=== PATIENT | male | born 1945 | race Two or more races ===

== ENCOUNTER 2016-09-16 09:54 | Observation (INO) | payer MEDICARE ==
[~2016-09-16] VITALS: Ht 180.3 cm; Wt 83.0 kg
[~2016-09-16 09:54] MED LIST: ASPI325T4 PO; ATOR20TA50 PO; ISOS60TA24 PO; LISI10TA6 PO; METO25TA3 PO; METO25TA62 PO; NIFE90TA25 PO; [UNRECOGNIZED DRUG - CODE] PO
[2016-09-16 11:17] LABS: Basophils # (auto) 0 uL; Basophils % (auto) 0.3 % (0.0-2.0); CONDITION AutoValidated; Eosinophils # (auto) 0 uL; Eosinophils % (auto) 0.5 % (0.0-7.0); Hematocrit 42.9 % (41.0-53.0); Hemoglobin 14.6 g/dL (13.5-17.5); Lymphocytes # (auto) 1.5 uL; Lymphocytes % (auto) 17.7 % (10.0-50.0); Mean Corpuscular Hgb Conc. 34.2 g/dL (32.0-36.0); Mean Corpuscular Volume 90.7 fL (80.0-100.0); Mean Platelet Volume 9.1 fL (7.4-10.4); Monocytes # (auto) 0.6 uL; Monocytes % (auto) 7.3 % (0.0-12.0); Neutrophils # (auto) 6.2 uL; Neutrophils % (auto) 74.2 % (37.0-80.0); Platelet Count (auto) 201 10^3/uL (140-450); Red Cell Distribution Width 13.7 % (11.6-16.0); White Blood Cell 8.3 10^3/uL (4.4-10.8)
[2016-09-16 11:43] LABS: Albumin 3.4 g/dL (3.4-5.0); BUN/Creatinine Ratio 18.4; Bilirubin, Total 0.5 mg/dL (0.2-1.0); Calcium 8.6 mg/dL (8.5-10.1); Potassium 3.3 mmol/L (3.5-5.1); Total Protein 6.5 g/dL (6.4-8.2)
[2016-09-16 13:26] LABS: INR 1.04 (0.9-1.15); Partial Thromboplastin Time 29.5 sec (22.64-33.71); Prothrombin Time 11.3 sec (9.37-12.3)
[2016-09-16 13:36] LABS: B-Type Natriuretic Peptide 141.93 pg/mL (0-100)
[2016-09-16 13:42] LABS: Temperature: 23.3 C (20.0-25.0)
[2016-09-16] MEDS ORDERED: IOHEXOL 350 MG/ML 100ML IJ ONE (15:34)
[2016-09-16 16:13] VITALS: BP 146/86
[2016-09-16] MEDS ORDERED: POTASSIUM CHL 20 Meq TABLET PO ONE (16:45)
== END 2016-09-16 17:01 | disposition home or self-care (01) | DRG 310 ==
LOC: ER 09:57 → OVERFLOW 12:52 → ER 17:01
PROVIDERS: ADMIT Family Medicine; ATTEND Family Medicine
DX: R00.2 Palpitations (principal); E87.6 Hypokalemia; I48.0 Paroxysmal atrial fibrillation; R79.89 Other specified abnormal findings of blood chemistry; I71.2 Thoracic aortic aneurysm, without rupture; D49.7 Neoplasm of unspecified behavior of endocrine glands and other parts of nervous system; D89.9 Disorder involving the immune mechanism, unspecified; I10 Essential (primary) hypertension; K57.90 Diverticulosis of intestine, part unspecified, without perforation or abscess without bleeding; Z82.49 Family history of ischemic heart disease and other diseases of the circulatory system
CPT/HCPCS: 36415; 71020; 71260; 80053; 83735; 83880; 84443; 84484; 85025; 85379; 85610; 85730; 93005; 99285; G0378; Q9967

== ENCOUNTER 2016-12-22 07:30 | Emergency (ER) | payer MEDICARE ==
[~2016-12-22] VITALS: Ht 180.3 cm; Wt 83.0 kg
[~2016-12-22 07:30] MED LIST changes: +DIAZ5TAB3 PO; +EPLE25TA11 PO; -METO25TA62 PO; +SERT-160 PO
[2016-12-22] MEDS ORDERED: cloNIDine HCL 0.1 MG TAB PO ONE (08:15)
[2016-12-22 08:21] LABS: Basophils # (auto) 0 uL; Basophils % (auto) 0.4 % (0.0-2.0); Eosinophils # (auto) 0.1 uL; Eosinophils % (auto) 0.8 % (0.0-7.0); Hematocrit 41.6 % (41.0-53.0); Hemoglobin 14.3 g/dL (13.5-17.5); Lymphocytes # (auto) 1.1 uL; Lymphocytes % (auto) 16.7 % (10.0-50.0); Mean Corpuscular Hemoglobin 31.7 pg (28.0-32.0); Mean Corpuscular Hgb Conc. 34.4 g/dL (32.0-36.0); Mean Corpuscular Volume 92.1 fL (80.0-100.0); Mean Platelet Volume 8.9 fL (6.9-10.8); Monocytes # (auto) 0.4 uL; Monocytes % (auto) 5.5 % (0.0-12.0); Neutrophils # (auto) 4.9 uL; Neutrophils % (auto) 76.6 % (37.0-80.0); Platelet Count (auto) 159 10^3/uL (140-450); Red Cell Distribution Width 13.2 % (11.8-14.3); White Blood Cell 6.4 10^3/uL (4.4-10.8)
[2016-12-22 08:37] LABS: Albumin 3.3 g/dL (3.4-5.0); Anion Gap 7 (5-15); Aspartate Aminotransferase 11 U/L (15-37); BUN/Creatinine Ratio 19.1; Blood Urea Nitrogen 17 mg/dL (7-18); Calcium 8.6 mg/dL (8.5-10.1); Carbon Dioxide 28 mmol/L (21-32); Chloride 109 mmol/L (98-107); GFR African American 108 mL/min; GFR Non-African American 90 mL/min; Glucose 102 mg/dL (74-106); Potassium 3.7 mmol/L (3.5-5.1); Sodium 144 mmol/L (136-145)
[2016-12-22 08:44] LABS: Alkaline Phosphatase 79 U/L (45-117); Bilirubin, Total 0.5 mg/dL (0.2-1.0); Total Protein 6.4 g/dL (6.4-8.2)
[2016-12-22 09:10] VITALS: BP 139/79
== END 2016-12-22 15:50 | disposition home or self-care (01) ==
LOC: ER 07:30
DX: I11.0 Hypertensive heart disease with heart failure (principal); I50.9 Heart failure, unspecified; I48.91 Unspecified atrial fibrillation; E78.5 Hyperlipidemia, unspecified; R07.9 Chest pain, unspecified; R51 Headache; Z79.899 Other long term (current) drug therapy
CPT/HCPCS: 36415; 70450; 71020; 80053; 84484; 85025; 93005; 94761

== ENCOUNTER → 2018-03-08 | Outpatient (CLI) | payer OTHER, MEDICAID ==
[~2018-03-08] MED LIST changes: +ALBUTEROL SULF 2.5 MG/0.5ML(0.5%) NEB SOLN ONE; -METO25TA3 PO; +METO25TA4 PO
== END | disposition home or self-care (01) ==
LOC: XYW 08:16
PROVIDERS: ATTEND Internal Medicine Pulmonary Disease
DX: R06.02 Shortness of breath (principal)
CPT/HCPCS: 94060; 94727; 94729; J7611

== ENCOUNTER 2019-01-26 08:35 | Emergency (ER) | payer OTHER, MEDICAID ==
[~2019-01-26] VITALS: Ht 175.3 cm; Wt 88.5 kg
[~2019-01-26 08:35] MED LIST changes: -ALBUTEROL SULF 2.5 MG/0.5ML(0.5%) NEB SOLN ONE; -EPLE25TA11 PO; +EPLE25TA4 PO; +METO25TA36 PO; -METO25TA4 PO
[2019-01-26 08:43] VITALS: BP 143/71
[2019-01-26 08:59] LABS: Urine Bacteria NONE SEEN /hpf (None Seen); Urine Blood Negative /uL (Negative); Urine Mucus FEW (None Seen); Urine Specific Gravity 1.022 (1.001-1.035); Urine WBC 231 /hpf (0 - 3)
[2019-01-26] MEDS ORDERED: cefTRIAXone SOD 1,000 MG VL IM ONE (10:00)
[2019-01-26] MEDS ORDERED: PHENAZOPYRIDINE HCL 100 MG TAB PO ONE (10:00)
[2019-01-26] MEDS ORDERED: ACETAMINOPHEN 500 MG TAB PO ONE (10:00)
== END 2019-01-26 10:25 | disposition home or self-care (01) ==
LOC: ER 08:35
DX: N39.0 Urinary tract infection, site not specified (principal); R51 Headache; I48.91 Unspecified atrial fibrillation; I11.0 Hypertensive heart disease with heart failure; I50.9 Heart failure, unspecified; E78.5 Hyperlipidemia, unspecified; Z79.899 Other long term (current) drug therapy
CPT/HCPCS: 81001; 96372; 99283; J0696

== ENCOUNTER 2020-09-01 12:07 | Day surgery (SDC) | payer OTHER, MEDICAID ==
[2020-08-27 12:20] LABS: Basophils # (auto) 0 10 ^3/uL (0-0.2); Basophils % (auto) 0.4 % (0.0-2.0); Eosinophils # (auto) 0.3 10 ^3/uL (0-0.8); Eosinophils % (auto) 3.1 % (0.0-7.0); Hematocrit 44.4 % (41.0-53.0); Hemoglobin 15.4 g/dL (13.5-17.5); Lymphocytes % (auto) 21.3 % (10.0-50.0); Mean Corpuscular Hemoglobin 31.6 pg (28.0-32.0); Mean Corpuscular Hgb Conc. 34.5 g/dL (32.0-36.0); Mean Corpuscular Volume 91.4 fL (80.0-100.0); Monocytes # (auto) 0.9 10 ^3/uL (0-1.3); Monocytes % (auto) 9.6 % (0.0-12.0); Neutrophils # (auto) 6.2 10 ^3/uL (1.6-8.6); Neutrophils % (auto) 65.6 % (37.0-80.0); Nucleated Red Blood Cells % 0.1 %; Platelet Count (auto) 244 10^3/uL (140-450); Red Blood Cells 4.86 10^6/uL (4.5-5.90); Red Cell Distribution Width 13.4 % (11.8-14.3); White Blood Cell 9.5 10^3/uL (4.4-10.8)
[2020-08-27 12:33] LABS: INR 1.02 (0.9-1.15); Partial Thromboplastin Time 29.3 sec (23.0-31.2)
[2020-08-27 12:39] LABS: Albumin 3.3 g/dL (3.4-5.0); Calcium 8.8 mg/dL (8.5-10.1); Potassium 4.5 mmol/L (3.5-5.1)
[2020-08-27 12:42] LABS: Bilirubin, Total 0.4 mg/dL (0.2-1.0); Total Protein 6.8 g/dL (6.4-8.2)
[~2020-09-01] VITALS: Ht 175.3 cm; Wt 87.1 kg
[~2020-09-01 12:07] MED LIST changes: -ATOR20TA50 PO; -DIAZ5TAB3 PO; +DOXA4TAB5 PO; +DOXE10CA PO; -EPLE25TA4 PO; -LISI10TA6 PO; +LOSA-69 PO; -NIFE90TA25 PO; -SERT-160 PO; +VORT10TA PO; -[UNRECOGNIZED DRUG - CODE] PO
[2020-09-01] MEDS ORDERED: fentaNYL CITRATE 100 MCG/2 ML VL ONE (12:13)
[2020-09-01] MEDS: fentaNYL CITRATE 100 MCG/2 ML VL ONE ×2 (14:02→14:05)
[2020-09-01] MEDS: MIDAZOLAM HCL 5 MG/ML-1ML VIAL ONE ×3 (14:02→14:08)
[2020-09-01] MEDS: diphenhdrAMINE HCL 50 MG/1 ML VL ONE ×2 (14:02→14:05)
[2020-09-01 15:15] VITALS: BP 135/69
== END 2020-09-01 15:40 | disposition home or self-care (01) ==
LOC: GI 12:07
PROVIDERS: ATTEND Internal Medicine Gastroenterology
DX: Z12.11 Encounter for screening for malignant neoplasm of colon (principal); D12.2 Benign neoplasm of ascending colon; D12.3 Benign neoplasm of transverse colon; D12.4 Benign neoplasm of descending colon; D12.5 Benign neoplasm of sigmoid colon; K57.30 Diverticulosis of large intestine without perforation or abscess without bleeding; F99 Mental disorder, not otherwise specified; F32.9 Major depressive disorder, single episode, unspecified; F41.9 Anxiety disorder, unspecified; F17.200 Nicotine dependence, unspecified, uncomplicated; N40.0 Benign prostatic hyperplasia without lower urinary tract symptoms; I48.91 Unspecified atrial fibrillation; Z79.82 Long term (current) use of aspirin; Z79.899 Other long term (current) drug therapy; Z80.0 Family history of malignant neoplasm of digestive organs; Z20.822 Contact with and (suspected) exposure to COVID-19; Z98.890 Other specified postprocedural states; Z68.28 Body mass index [BMI] 28.0-28.9, adult; Z95.5 Presence of coronary angioplasty implant and graft; Z80.42 Family history of malignant neoplasm of prostate
CPT/HCPCS: 36415; 45385; 80053; 85025; 85610; 85730; 88305; J1200; J2250; J3010; J7030; U0003; G0500

== ENCOUNTER 2021-07-22 11:00 | Inpatient (IN) | payer OTHER, MEDICAID ==
[~2021-07-22] VITALS: Ht 175.3 cm; Wt 86.9 kg
[~2021-07-22 11:00] MED LIST changes: -DOXA4TAB5 PO; +DOXA4TAB6 PO
[2021-07-22 11:48] LABS: Basophils # (auto) 0 10 ^3/uL (0-0.2); Basophils % (auto) 0.2 % (0.0-2.0); Eosinophils # (auto) 0 10 ^3/uL (0-0.8); Hemoglobin 14.1 g/dL (13.5-17.5); Lymphocytes # (auto) 0.7 10 ^3/uL (0.4-5.4); Lymphocytes % (auto) 10.3 % (10.0-50.0); Mean Corpuscular Hemoglobin 30.6 pg (28.0-32.0); Mean Corpuscular Hgb Conc. 33.6 g/dL (32.0-36.0); Mean Corpuscular Volume 91.1 fL (80.0-100.0); Monocytes # (auto) 0.2 10 ^3/uL (0-1.3); Monocytes % (auto) 3.4 % (0.0-12.0); Neutrophils # (auto) 6.3 10 ^3/uL (1.6-8.6); Neutrophils % (auto) 86.1 % (37.0-80.0); Nucleated Red Blood Cells % 0.1 %; Red Blood Cells 4.61 10^6/uL (4.5-5.90); Red Cell Distribution Width 13.2 % (11.8-14.3); White Blood Cell 7.3 10^3/uL (4.4-10.8)
[2021-07-22 11:57] LABS: Albumin 3.3 g/dL (3.4-5.0); Calcium 8.7 mg/dL (8.5-10.1); Magnesium 2.3 mg/dL (1.6-2.6); Potassium 4.2 mmol/L (3.5-5.1)
[2021-07-22 12:05] LABS: Bilirubin, Total 0.5 mg/dL (0.2-1.0); Total Protein 6.9 g/dL (6.4-8.2)
[2021-07-22] MEDS ORDERED: IOHEXOL 350 MG/ML 100ML IJ ONE (12:11)
[2021-07-22] MEDS ORDERED: LORazepam 0.5 MG TAB PO ONE (17:30)
[2021-07-22] MEDS ORDERED: MORPHINE SULFATE INJECTION 2 MG/ML SYRG IV PRN ×2 (18:15)
[2021-07-22] MEDS ORDERED: ONDANSETRON HCL 4 MG/2 ML VIAL IV PRN (18:15)
[2021-07-22] MEDS ORDERED: SODIUM CHLORIDE 0.9% 500 ML IV ONE (18:15)
[2021-07-22] MEDS ORDERED: NITROGLYCERIN 0.4 MG SL TAB SL PRN (18:15)
[2021-07-22] MEDS ORDERED: hydrALAZINE HCL 20 MG/ML VL IV PRN (18:45)
[2021-07-22 19:11] LABS: Cholesterol 191 mg/dL (< 200)
[2021-07-22 19:14] LABS: HDL Cholesterol 41 mg/dL (40-59); LDL Cholesterol 129 mg/dL (< 100); Triglycerides 120 mg/dL (< 150)
[2021-07-22 22:00] VITALS: BP 128/71
[2021-07-22] MEDS ORDERED: CLON0.5T3 PO (22:39)
[2021-07-22] MEDS ORDERED: MONT-8 PO (22:39)
[2021-07-22] MEDS ORDERED: TEMAZEPAM 15 MG CAP PO ONE (22:45)
[2021-07-23] MEDS ORDERED: MEPO1INJ SC (03:56)
[2021-07-23 05:00] VITALS: BP 135/67
[2021-07-23 08:46] VITALS: BP 135/65
[2021-07-23] MEDS: ASPirin 81 mg TAB PO SCH (09:18)
[2021-07-23] MEDS: LOSARTAN POTASSIUM 50 MG TAB PO SCH (09:19)
[2021-07-23] MEDS: DOXAZOSIN MESYL 2 MG TAB PO SCH (09:19)
[2021-07-23] MEDS: ENOXAPARIN SOD 40 MG/0.4 ML SYRINGE SC SCH (09:20)
[2021-07-23 09:52] LABS: Urine Bacteria NONE SEEN /hpf (None Seen); Urine Blood Negative /uL (Negative); Urine Specific Gravity 1.019 (1.001-1.035); Urine WBC 4 /hpf (0 - 3)
[2021-07-23] MEDS ORDERED: ISOSORBIDE MONONITRATE ER 60 MG TAB PO SCH (10:00)
[2021-07-23] MEDS ORDERED: Vortioxetine Hydrobromide (Trintellix) 10 MG PO SCH (10:00)
[2021-07-23] MEDS ORDERED: METOPROLOL SUCCINATE XL 50 MG TAB PO SCH (10:00)
[2021-07-23 11:29] LABS: Alcohol, Urine < 3.0 mg/dL (0-10); Amphetamine Screen, Urine NEGATIVE (NEGATIVE); Barbiturate Scree,Urine NEGATIVE (NEGATIVE); Benzodiazephine Screen, Urine NEGATIVE (NEGATIVE); Cannabinoid Screen, Urine NEGATIVE (NEGATIVE); Cocaine Screen, Urine NEGATIVE (NEGATIVE); Opiate Scree,Urine NEGATIVE (NEGATIVE); Phencyclidine Screen, Urine NEGATIVE (NEGATIVE)
[2021-07-23] MEDS ORDERED: GADOTERATE MEG 10 MMOL/20ml INJ (0.5MMOL/ml) IV ONE (12:30)
[2021-07-23 12:59] VITALS: BP 106/66
[2021-07-23 17:00] VITALS: BP 109/60
[2021-07-23 22:00] VITALS: BP 105/58
[2021-07-23] MEDS: METOPROLOL TARTRATE 25 MG TAB PO SCH (22:00)
[2021-07-23] MEDS: ATORVASTATIN 20 MG TAB PO SCH (22:11)
[2021-07-24 05:00] VITALS: BP 96/50
[2021-07-24 09:00] VITALS: BP 133/64
[2021-07-24] MEDS: ASPirin 81 mg TAB PO SCH (09:48)
[2021-07-24] MEDS: ENOXAPARIN SOD 40 MG/0.4 ML SYRINGE SC SCH (09:49)
[2021-07-24] MEDS: LOSARTAN POTASSIUM 50 MG TAB PO SCH (09:52)
[2021-07-24] MEDS: DOXAZOSIN MESYL 2 MG TAB PO SCH (09:53)
[2021-07-24] MEDS: METOPROLOL TARTRATE 25 MG TAB PO SCH ×2 (09:53→22:33)
[2021-07-24 13:00] VITALS: BP 124/65
[2021-07-24] MEDS ORDERED: clonazePAM 0.5 MG TAB PO SCH (14:00)
[2021-07-24] MEDS ORDERED: clonazePAM 0.5 MG TAB PO PRN (15:15)
[2021-07-24 17:07] VITALS: BP 144/77
[2021-07-24 20:04] VITALS: BP 144/77
[2021-07-24 22:00] VITALS: BP 141/73
[2021-07-24] MEDS: TEMAZEPAM 15 MG CAP PO PRN (22:29)
[2021-07-24] MEDS: ATORVASTATIN 20 MG TAB PO SCH (22:34)
[2021-07-24] MEDS: ENOXAPARIN SOD 100 MG/1 ML SYRINGE SC SCH (22:35)
[2021-07-25] VITALS (7 sets, daily range): BP systolic 118–142; BP diastolic 66–76
[2021-07-25 04:53] LABS: Basophils # (auto) 0 10 ^3/uL (0-0.2); Basophils % (auto) 0.3 % (0.0-2.0); Eosinophils # (auto) 0 10 ^3/uL (0-0.8); Eosinophils % (auto) 0.3 % (0.0-7.0); Hematocrit 38.4 % (41.0-53.0); Hemoglobin 13.5 g/dL (13.5-17.5); Lymphocytes # (auto) 1.9 10 ^3/uL (0.4-5.4); Lymphocytes % (auto) 23.6 % (10.0-50.0); Mean Corpuscular Hemoglobin 31.3 pg (28.0-32.0); Mean Corpuscular Hgb Conc. 35.2 g/dL (32.0-36.0); Monocytes # (auto) 0.8 10 ^3/uL (0-1.3); Monocytes % (auto) 9.6 % (0.0-12.0); Neutrophils # (auto) 5.4 10 ^3/uL (1.6-8.6); Neutrophils % (auto) 66.2 % (37.0-80.0); Nucleated Red Blood Cells % 0.1 %; Red Blood Cells 4.32 10^6/uL (4.5-5.90); Red Cell Distribution Width 12.5 % (11.8-14.3); White Blood Cell 8.2 10^3/uL (4.4-10.8)
[2021-07-25 05:05] LABS: BUN/Creatinine Ratio 18.6
[2021-07-25] MEDS ORDERED: ADENOSINE 72 MG in GIVE UN-DILUTED 0 ML IV ONE (09:15)
[2021-07-25] MEDS: LOSARTAN POTASSIUM 25 MG TAB PO SCH (10:00)
[2021-07-25] MEDS: METOPROLOL TARTRATE 25 MG TAB PO SCH ×2 (10:01→21:39)
[2021-07-25] MEDS: DOXAZOSIN MESYL 2 MG TAB PO SCH (10:02)
[2021-07-25] MEDS: ENOXAPARIN SOD 100 MG/1 ML SYRINGE SC SCH ×2 (10:04→21:37)
[2021-07-25 10:30] LABS: Folate (Folic Acid) 16.57 ng/mL (5.38-24)
[2021-07-25] MEDS: ATORVASTATIN 20 MG TAB PO SCH (21:36)
[2021-07-25] MEDS: TEMAZEPAM 15 MG CAP PO PRN (21:43)
[2021-07-26 05:13] VITALS: BP 113/60
[2021-07-26 05:23] LABS: Basophils # (auto) 0 10 ^3/uL (0-0.2); Basophils % (auto) 0.2 % (0.0-2.0); Eosinophils # (auto) 0 10 ^3/uL (0-0.8); Eosinophils % (auto) 0.4 % (0.0-7.0); Hematocrit 39.5 % (41.0-53.0); Hemoglobin 13.9 g/dL (13.5-17.5); Lymphocytes # (auto) 1.6 10 ^3/uL (0.4-5.4); Lymphocytes % (auto) 20.2 % (10.0-50.0); Mean Corpuscular Hemoglobin 31.5 pg (28.0-32.0); Mean Corpuscular Hgb Conc. 35.2 g/dL (32.0-36.0); Mean Corpuscular Volume 89.5 fL (80.0-100.0); Monocytes # (auto) 0.7 10 ^3/uL (0-1.3); Monocytes % (auto) 9.3 % (0.0-12.0); Neutrophils # (auto) 5.5 10 ^3/uL (1.6-8.6); Neutrophils % (auto) 69.9 % (37.0-80.0); Nucleated Red Blood Cells % 0.1 %; Red Blood Cells 4.41 10^6/uL (4.5-5.90); Red Cell Distribution Width 13.2 % (11.8-14.3); White Blood Cell 7.8 10^3/uL (4.4-10.8)
[2021-07-26 05:40] LABS: Calcium 8.8 mg/dL (8.5-10.1)
[2021-07-26 05:42] LABS: BUN/Creatinine Ratio 23.5
[2021-07-26 07:55] VITALS: BP 123/72
[2021-07-26 08:05] VITALS: BP 123/72
[2021-07-26] MEDS: LOSARTAN POTASSIUM 25 MG TAB PO SCH (09:57)
[2021-07-26] MEDS: DOXAZOSIN MESYL 2 MG TAB PO SCH (09:58)
[2021-07-26] MEDS: ENOXAPARIN SOD 100 MG/1 ML SYRINGE SC SCH ×2 (09:59→21:41)
[2021-07-26] MEDS: METOPROLOL TARTRATE 25 MG TAB PO SCH ×2 (09:59→21:41)
[2021-07-26 10:29] LABS: INR 1.11 (0.9-1.15); Partial Thromboplastin Time 37.3 sec (23.6-33.0)
[2021-07-26 12:05] VITALS: BP 113/59
[2021-07-26 16:00] VITALS: BP 110/66
[2021-07-26] MEDS: ATORVASTATIN 20 MG TAB PO SCH (21:40)
[2021-07-26 22:00] VITALS: BP 120/67
[2021-07-27] VITALS (13 sets, daily range): BP systolic 108–128; BP diastolic 55–66
[2021-07-27 05:30] LABS: Basophils # (auto) 0 10 ^3/uL (0-0.2); Basophils % (auto) 0.3 % (0.0-2.0); Eosinophils # (auto) 0 10 ^3/uL (0-0.8); Eosinophils % (auto) 0.3 % (0.0-7.0); Hematocrit 39.7 % (41.0-53.0); Hemoglobin 13.9 g/dL (13.5-17.5); Lymphocytes # (auto) 1.4 10 ^3/uL (0.4-5.4); Lymphocytes % (auto) 20.1 % (10.0-50.0); Mean Corpuscular Hemoglobin 31.5 pg (28.0-32.0); Mean Corpuscular Hgb Conc. 35.1 g/dL (32.0-36.0); Mean Corpuscular Volume 89.9 fL (80.0-100.0); Monocytes # (auto) 0.6 10 ^3/uL (0-1.3); Monocytes % (auto) 8.9 % (0.0-12.0); Neutrophils # (auto) 5.1 10 ^3/uL (1.6-8.6); Neutrophils % (auto) 70.4 % (37.0-80.0); Red Blood Cells 4.42 10^6/uL (4.5-5.90); Red Cell Distribution Width 12.9 % (11.8-14.3); White Blood Cell 7.2 10^3/uL (4.4-10.8)
[2021-07-27 05:56] LABS: INR 1.1 (0.9-1.15); Partial Thromboplastin Time 33.4 sec (23.6-33.0)
[2021-07-27 06:02] LABS: Calcium 8.8 mg/dL (8.5-10.1); Potassium 3.8 mmol/L (3.5-5.1)
[2021-07-27 06:04] LABS: BUN/Creatinine Ratio 25.8
[2021-07-27] MEDS: DOXAZOSIN MESYL 2 MG TAB PO SCH (09:28)
[2021-07-27] MEDS: METOPROLOL TARTRATE 25 MG TAB PO SCH ×2 (09:28→22:00)
[2021-07-27] MEDS: LOSARTAN POTASSIUM 25 MG TAB PO SCH (09:28)
[2021-07-27] MEDS: ENOXAPARIN SOD 100 MG/1 ML SYRINGE SC SCH ×2 (09:29→22:00)
[2021-07-27] MEDS ORDERED: HEPARIN SODIUM (PORCINE) 5000 UNITS/ML 1ML VIAL ONE (10:56)
[2021-07-27] MEDS ORDERED: fentaNYL CITRATE 100 MCG/2 ML VL ONE (10:56)
[2021-07-27] MEDS ORDERED: ANGIOMAX 250 MG VIAL IV ONE (10:56)
[2021-07-27] MEDS ORDERED: VERAPAMIL 2.5MG/ML INJ 2ML VIAL IV ONE (10:56)
[2021-07-27] MEDS ORDERED: LIDOCAINE 2%HCL (LOCAL ANESTH.) INJ 10ml MDV ONE (10:57)
[2021-07-27] MEDS ORDERED: SODIUM CHL 0.9% 0 ML ONE (10:57)
[2021-07-27] MEDS ORDERED: MIDAZOLAM HCL 2MG/2ML 2ml VIAL (1mg/ml) ONE (10:57)
[2021-07-27] MEDS ORDERED: IODIXANOL 320MG/ML 100ML BTL IV ONE (10:57)
[2021-07-27] MEDS ORDERED: MIDAZOLAM HCL 2MG/2ML 2ml VIAL (1mg/ml) IV ONE (14:00)
[2021-07-27] MEDS: ATORVASTATIN 20 MG TAB PO SCH (22:00)
[2021-07-27] MEDS: RANOLAZINE ER 500 MG TAB PO SCH (22:01)
[2021-07-27] MEDS: TEMAZEPAM 15 MG CAP PO PRN (22:02)
[2021-07-28 05:00] VITALS: BP 115/58
[2021-07-28 05:08] LABS: Basophils # (auto) 0 10 ^3/uL (0-0.2); Basophils % (auto) 0.3 % (0.0-2.0); Eosinophils # (auto) 0 10 ^3/uL (0-0.8); Eosinophils % (auto) 0.2 % (0.0-7.0); Hematocrit 38.6 % (41.0-53.0); Hemoglobin 13.6 g/dL (13.5-17.5); Lymphocytes # (auto) 1.4 10 ^3/uL (0.4-5.4); Lymphocytes % (auto) 17.1 % (10.0-50.0); Mean Corpuscular Hemoglobin 31.8 pg (28.0-32.0); Mean Corpuscular Hgb Conc. 35.3 g/dL (32.0-36.0); Mean Corpuscular Volume 90.1 fL (80.0-100.0); Monocytes # (auto) 0.7 10 ^3/uL (0-1.3); Monocytes % (auto) 9.3 % (0.0-12.0); Neutrophils # (auto) 5.8 10 ^3/uL (1.6-8.6); Neutrophils % (auto) 73.1 % (37.0-80.0); Nucleated Red Blood Cells % 0.1 %; Red Blood Cells 4.29 10^6/uL (4.5-5.90); Red Cell Distribution Width 12.8 % (11.8-14.3); White Blood Cell 7.9 10^3/uL (4.4-10.8)
[2021-07-28 05:30] LABS: BUN/Creatinine Ratio 19.1; Calcium 8.8 mg/dL (8.5-10.1); Potassium 4.3 mmol/L (3.5-5.1)
[2021-07-28 09:00] VITALS: BP 127/68
[2021-07-28] MEDS: LOSARTAN POTASSIUM 25 MG TAB PO SCH (09:46)
[2021-07-28] MEDS: DOXAZOSIN MESYL 2 MG TAB PO SCH (09:48)
[2021-07-28] MEDS: ENOXAPARIN SOD 100 MG/1 ML SYRINGE SC SCH (09:49)
[2021-07-28] MEDS: RANOLAZINE ER 500 MG TAB PO SCH ×2 (09:50→11:45)
[2021-07-28] MEDS: METOPROLOL TARTRATE 25 MG TAB PO SCH (09:52)
[2021-07-28] MEDS ORDERED: APIX5TAB PO (10:14)
[2021-07-28] MEDS ORDERED: RANO500T PO (10:14)
[2021-07-28] MEDS ORDERED: APIXABAN 5 MG TAB PO SCH (11:00)
[2021-07-28 11:06] VITALS: BP 127/68
[2021-07-28 12:26] VITALS: BP 129/71
== END 2021-07-28 13:58 | disposition home or self-care (01) | DRG 287 ==
LOC: ER 11:00 → TELE-WESTW 18:08 → ER 19:57
PROVIDERS: ADMIT Registered Nurse; ATTEND Internal Medicine Pulmonary Disease
PROC: 4A023N7 Measurement of Cardiac Sampling and Pressure, Left Heart, Percutaneous Approach (ICD-10-PCS; principal; 2021-07-27)
PROC: B211YZZ Fluoroscopy of Multiple Coronary Arteries using Other Contrast (ICD-10-PCS; 2021-07-27)
PROC: B215YZZ Fluoroscopy of Left Heart using Other Contrast (ICD-10-PCS; 2021-07-27)
DX: I24.9 Acute ischemic heart disease, unspecified (principal); G81.91 Hemiplegia, unspecified affecting right dominant side; I13.0 Hypertensive heart and chronic kidney disease with heart failure and stage 1 through stage 4 chronic kidney disease, or unspecified chronic kidney disease; I50.32 Chronic diastolic (congestive) heart failure; E88.09 Other disorders of plasma-protein metabolism, not elsewhere classified; J84.10 Pulmonary fibrosis, unspecified; I71.2 Thoracic aortic aneurysm, without rupture; N18.2 Chronic kidney disease, stage 2 (mild); I48.0 Paroxysmal atrial fibrillation; R73.03 Prediabetes; R00.1 Bradycardia, unspecified; G47.30 Sleep apnea, unspecified; E27.8 Other specified disorders of adrenal gland; E78.5 Hyperlipidemia, unspecified; F41.9 Anxiety disorder, unspecified; Z53.20 Procedure and treatment not carried out because of patient's decision for unspecified reasons; I25.119 Atherosclerotic heart disease of native coronary artery with unspecified angina pectoris; J45.909 Unspecified asthma, uncomplicated; F32.A Depression, unspecified; G62.9 Polyneuropathy, unspecified; Z20.822 Contact with and (suspected) exposure to COVID-19; Z79.899 Other long term (current) drug therapy; Z80.3 Family history of malignant neoplasm of breast; Z81.8 Family history of other mental and behavioral disorders; Z82.49 Family history of ischemic heart disease and other diseases of the circulatory system; Z85.3 Personal history of malignant neoplasm of breast; Z80.0 Family history of malignant neoplasm of digestive organs
CPT/HCPCS: 36415; 70450; 70551; 71045; 71275; 74183; 78452; 80048; 80053; 80061; 80307; 81001; 82607; 82746; 83036; 83735; 83880; 84443; 84484; 85025; 85610; 85730; 93005; 93017; 93306; 93458; 93886; 96360; 99152; G0378; J0153; J2001; J2250; Q9967

== ENCOUNTER 2021-12-10 07:09 | Emergency (ER) | payer OTHER, MEDICAID ==
[~2021-12-10] VITALS: Ht 177.8 cm; Wt 86.1 kg
[~2021-12-10 07:09] MED LIST changes: +APIX5TAB PO; +CLON0.5T3 PO; +MEPO1INJ SC; +MONT-8 PO; +RANO500T PO
[2021-12-10 07:54] LABS: Basophils # (auto) 0.1 10 ^3/uL (0-0.2); Basophils % (auto) 0.8 % (0.0-2.0); Eosinophils # (auto) 0.1 10 ^3/uL (0-0.8); Eosinophils % (auto) 0.9 % (0.0-7.0); Hematocrit 43.5 % (41.0-53.0); Hemoglobin 14.4 g/dL (13.5-17.5); Lymphocytes # (auto) 1.4 10 ^3/uL (0.4-5.4); Lymphocytes % (auto) 18.4 % (10.0-50.0); Mean Corpuscular Hemoglobin 30.4 pg (28.0-32.0); Mean Corpuscular Hgb Conc. 33.1 g/dL (32.0-36.0); Mean Corpuscular Volume 91.7 fL (80.0-100.0); Monocytes # (auto) 0.5 10 ^3/uL (0-1.3); Monocytes % (auto) 7.5 % (0.0-12.0); Neutrophils # (auto) 5.3 10 ^3/uL (1.6-8.6); Neutrophils % (auto) 72.4 % (37.0-80.0); Red Blood Cells 4.74 10^6/uL (4.5-5.90); Red Cell Distribution Width 12.9 % (11.8-14.3); White Blood Cell 7.4 10^3/uL (4.4-10.8)
[2021-12-10 08:06] LABS: INR 1.02 (0.9-1.15); Partial Thromboplastin Time 30.9 sec (24.6-33.4)
[2021-12-10 08:12] LABS: Albumin 3.5 g/dL (3.4-5.0); Calcium 8.7 mg/dL (8.5-10.1); Potassium 4.4 mmol/L (3.5-5.1)
[2021-12-10 08:17] LABS: BUN/Creatinine Ratio 20.6; Bilirubin, Total 0.5 mg/dL (0.2-1.0); Total Protein 6.9 g/dL (6.4-8.2)
[2021-12-10] MEDS ORDERED: PRED20TA2 PO (12:25)
[2021-12-10 12:52] VITALS: BP 113/60
== END 2021-12-10 13:22 | disposition home or self-care (01) ==
LOC: ER 07:11
DX: R07.89 Other chest pain (principal); I11.0 Hypertensive heart disease with heart failure; I50.9 Heart failure, unspecified; J45.909 Unspecified asthma, uncomplicated; E78.5 Hyperlipidemia, unspecified; Z87.891 Personal history of nicotine dependence
CPT/HCPCS: 36415; 71045; 80053; 84484; 85025; 85610; 85730; 93005

== ENCOUNTER 2022-10-06 10:00 | Emergency (ER) | payer OTHER, MEDICAID ==
[~2022-10-06] VITALS: Ht 175.3 cm; Wt 89.0 kg
[~2022-10-06 10:00] MED LIST changes: -DOXA4TAB6 PO; +DOXA4TAB83 PO; -LOSA-69 PO; +LOSA50TA46 PO; +PRED20TA2 PO
[2022-10-06 10:47] VITALS: BP 95/45
[2022-10-06 11:54] LABS: Urine Bacteria MOD /hpf (None Seen); Urine Blood 1+ /uL (Negative); Urine Mucus FEW (None Seen); Urine Specific Gravity 1.021 (1.001-1.035); Urine WBC 1527 /hpf (0 - 3); Urine WBC Clumps PRESENT /hpf (None Seen)
[2022-10-06] MEDS ORDERED: CIPR-173 PO (12:10)
[2022-10-06] MEDS ORDERED: cefTRIAXone SOD 1,000 MG VL IM ONE (12:15)
== END 2022-10-06 12:22 | disposition home or self-care (01) ==
LOC: ER 10:00
DX: N39.0 Urinary tract infection, site not specified (principal); J45.909 Unspecified asthma, uncomplicated; E78.5 Hyperlipidemia, unspecified; I10 Essential (primary) hypertension; Z87.891 Personal history of nicotine dependence
CPT/HCPCS: 81001; 96372; 99283; J0696

== ENCOUNTER 2022-11-30 08:05 | Emergency (ER) | payer OTHER, MEDICAID ==
[~2022-11-30] VITALS: Ht 175.3 cm; Wt 88.2 kg
[~2022-11-30 08:05] MED LIST changes: +CIPR-173 PO
[2022-11-30 09:26] VITALS: BP 133/74; PULSE 74; RESP 18; TEMP 97.4; O2SAT 97
[2022-11-30] MEDS ORDERED: ACET-1080 PO (10:15)
== END 2022-11-30 10:21 | disposition home or self-care (01) ==
LOC: ER 08:05
DX: M75.31 Calcific tendinitis of right shoulder (principal); I10 Essential (primary) hypertension; I48.91 Unspecified atrial fibrillation; E78.5 Hyperlipidemia, unspecified; J45.909 Unspecified asthma, uncomplicated; Z87.891 Personal history of nicotine dependence; Z79.82 Long term (current) use of aspirin; Z79.899 Other long term (current) drug therapy; Z79.2 Long term (current) use of antibiotics
CPT/HCPCS: 73030

== ENCOUNTER 2023-01-19 10:49 | Day surgery (SDC) | payer OTHER, MEDICAID ==
[2023-01-17 11:41] LABS: Basophils # (auto) 0 10 ^3/uL (0-0.2); Basophils % (auto) 0.3 % (0.0-2.0); Eosinophils # (auto) 0.1 10 ^3/uL (0-0.8); Eosinophils % (auto) 1.9 % (0.0-7.0); Hemoglobin 13.3 g/dL (13.5-17.5); Lymphocytes # (auto) 1.4 10 ^3/uL (0.4-5.4); Lymphocytes % (auto) 22.2 % (10.0-50.0); Mean Corpuscular Hemoglobin 31.3 pg (28.0-32.0); Mean Corpuscular Hgb Conc. 34.1 g/dL (32.0-36.0); Mean Corpuscular Volume 91.8 fL (80.0-100.0); Monocytes # (auto) 0.6 10 ^3/uL (0-1.3); Monocytes % (auto) 9.5 % (0.0-12.0); Neutrophils # (auto) 4.2 10 ^3/uL (1.6-8.6); Neutrophils % (auto) 66.1 % (37.0-80.0); Nucleated Red Blood Cells % 0.1 %; Red Blood Cells 4.25 10^6/uL (4.5-5.90); Red Cell Distribution Width 13.5 % (11.8-14.3); White Blood Cell 6.4 10^3/uL (4.4-10.8)
[2023-01-17 11:46] LABS: INR 1.08 (0.9-1.15); Partial Thromboplastin Time 31.6 SEC (24.5-34.5); Prothrombin Time 11.3 sec (9.3-11.8)
[2023-01-17 12:04] LABS: Alanine Aminotransferase 12 U/L (7-40); Albumin 4.2 g/dL (3.2-4.8); Alkaline Phosphatase 73 U/L (46-116); Anion Gap 5 (5-15); Aspartate Aminotransferase < 8 U/L (13-40); Blood Urea Nitrogen 13 mg/dL (9-23); Calcium 9.3 mg/dL (8.5-10.1); Carbon Dioxide 27 mmol/L (20-30); Chloride 98 mmol/L (98-107); Glucose 102 mg/dL (74-106); Potassium 4.8 mmol/L (3.5-5.1); Sodium 130 mmol/L (136-145); Total Protein 6.7 g/dL (5.7-8.2)
[~2023-01-19] VITALS: Ht 175.3 cm; Wt 88.9 kg
[~2023-01-19 10:49] MED LIST changes: +ACET-1080 PO; -APIX5TAB PO; -ASPI325T4 PO; -CIPR-173 PO; -CLON0.5T3 PO; -DOXE10CA PO; +GABA-339 PO; -ISOS60TA24 PO; -MEPO1INJ SC; -METO25TA36 PO; -MONT-8 PO; -PRED20TA2 PO; -RANO500T PO; -VORT10TA PO; +VORT1TAB3 PO
[2023-01-19 13:47] VITALS: PULSE 58; RESP 14; O2SAT 93
[2023-01-19] MEDS: fentaNYL CITRATE 100 MCG/2 ML VL ONE ×3 (13:52→14:01)
[2023-01-19] MEDS: MIDAZOLAM HCL 2MG/2ML 2ml VIAL (1mg/ml) ONE ×4 (13:52→14:09)
[2023-01-19] MEDS: diphenhdrAMINE HCL 50 MG/1 ML VL ONE ×2 (13:52→13:54)
[2023-01-19 14:55] VITALS: BP 150/74; PULSE 50; RESP 15; O2SAT 96
== END 2023-01-19 15:00 | disposition home or self-care (01) ==
LOC: GI 10:49
PROVIDERS: ATTEND Internal Medicine Gastroenterology
DX: Z12.11 Encounter for screening for malignant neoplasm of colon (principal); K63.5 Polyp of colon; K62.1 Rectal polyp; K57.30 Diverticulosis of large intestine without perforation or abscess without bleeding; K52.9 Noninfective gastroenteritis and colitis, unspecified; K63.89 Other specified diseases of intestine; Z86.010 Personal history of colon polyps; Z79.899 Other long term (current) drug therapy; Z98.890 Other specified postprocedural states; I10 Essential (primary) hypertension
CPT/HCPCS: 36415; 45380; 80053; 85025; 85610; 85730; J1200; J2250; J3010; J7030; 99152; 99153